=== PATIENT | female | born 1950 | race African-American/Black ===

== ENCOUNTER 2017-01-15 02:20 | Emergency (ER) | payer OTHER ==
[~2017-01-15] VITALS: Ht 157.5 cm; Wt 96.2 kg
--- NOTE | ~2017-01-15 | EKG ---
[address] [address] ELECTROCARDIOGRAM REPORT Name: MARIBEL FRANKS [id number] Admission: 01/15/17 Attend Phys: Discharge: 01/15/17 Date of : 50 Report #: [id number] THIS REPORT FOR: //name// [facility] ED Test Date: 2017-01-15 Test Time: 03:50:34 Pat Name: MARIBEL FRANKS Department: Room: Gender: F Welder Assistant: JULIETTE : 1950 Requested By: Jak Zavala Order Number: [id number] MD: Bhanu Steele Measurements Intervals [place] Rate: 84 P: 85 MT: 197 QRS: 15 QRSD: 97 T: 9 QT: 378 QTc: 447 Interpretive Statements Sinus rhythm No previous ECG available for comparison Electronically Signed On 01-15-2017 9:44:26 CDT by Bhanu Steele [email or web address] <ELECTRONICALLY SIGNED> By: Bhanu Steele MD 01/15/17 0944 0350 0350 Bhanu Steele MD /ELIOT
[2017-01-15] MEDS ORDERED: LISINOPRIL10 MG PO (02:26)
[2017-01-15 03:30] LABS: ABSOLUTE NEUTROPHILS 6.6 thou/uL (1.4-8.2); BASOPHILS 0.5 % (0.0-2.0); EOSINOPHILS 2.5 % (0.0-3.0); HEMATOCRIT 29.8 % (37.0-47.0); HEMOGLOBIN 10.1 gm/dL (12.0-15.0); LYMPHOCYTES 21.8 % (24.0-44.0); MCH 28.4 pg (26.0-34.0); MCHC 33.9 g/dL (28.0-37.0); MCV 83.7 fL (80.0-100.0); MONOCYTES 9.3 % (1.0-8.0); PLATELET COUNT 285 thou/uL (150-400); POLYS 65.9 % (36.0-66.0); RBC 3.56 mil/uL (4.20-5.00); RDW 14.8 % (10.5-14.5)
[2017-01-15 03:32] LABS: MANUAL DIFF NO
[2017-01-15 03:45] LABS: ALBUMIN 3.5 g/dL (3.4-5.0); ALKALINE PHOSPHATASE 54 U/L (46-116); ANION GAP 7 mmol/L (7-16); BUN 14 mg/dL (7-18); CALCIUM 9.3 mg/dL (8.5-10.1); CHLORIDE 99 mmol/L (98-107); CO2 27 mmol/L (21-32); CREATININE 0.7 mg/dL (0.6-1.0); GLUCOSE 111 mg/dL (74-106); MAGNESIUM 1.5 mg/dL (1.8-2.4); SALICYLATE < 2.8 mg/dL (2.8-20.0); SGOT 51 U/L (15-37); SGPT 37 U/L (30-65); SODIUM 133 mmol/L (136-145); TOTAL BILIRUBIN 0.5 mg/dL (<0.1-1.0); TROPONIN-I < 0.04 ng/mL (<0.04-0.07)
[2017-01-15 03:46] LABS: POTASSIUM 2.7 mmol/L (3.5-5.1)
[2017-01-15 04:28] LABS: ACETAMINOPHEN < 2 ug/mL (10-30)
[2017-01-15 04:56] LABS: URINE BILIRUBIN NEGATIVE (Negative); URINE BLOOD TRACE (Negative); URINE COLOR YELLOW; URINE GLUCOSE-RANDOM* NEGATIVE (Negative); URINE KETONES NEGATIVE (Negative); URINE LEUKOCYTES-REFLEX NEGATIVE (Negative); URINE PROTEIN (DIPSTICK) NEGATIVE (Negative); URINE UROBILINOGEN 0.2 E.U./dl (0.2-1.0)
[2017-01-15 05:06] LABS: AMP/METHAMP Negative (Negative); BARBITURATES Negative (Negative); BENZODIAZEPINES Negative (Negative); COCAINE Negative (Negative); METHADONE Negative (Negative); OPIATES Negative (Negative); PCP Negative (Negative); THC Negative (Negative)
[2017-01-15] MEDS ORDERED: ATIVAN0.5 MG PO (05:14)
[2017-01-15] MEDS ORDERED: TRAZODONE 150150 M1 PO (05:14)
[2017-01-15] MEDS ORDERED: POTASSIUM20 PO (05:17)
[2017-01-15 05:32] VITALS: BP 119/46
== END 2017-01-15 05:37 | disposition home or self-care (01) ==
LOC: ER 02:20
PROVIDERS: Emergency Medicine
DX: Z63.8 Other specified problems related to primary support group (principal); F41.9 Anxiety disorder, unspecified; E87.6 Hypokalemia; E83.42 Hypomagnesemia; G47.00 Insomnia, unspecified; I10 Essential (primary) hypertension; Z88.6 Allergy status to analgesic agent

== ENCOUNTER 2018-02-01 00:07 | Inpatient (IN) | payer OTHER ==
[~2018-02-01] VITALS: Ht 157.5 cm; Wt 71.2 kg
[2018-02-01] VITALS (52 sets, daily range): BP systolic 66–115; BP diastolic 29–75
--- NOTE | ~2018-02-01 | O ---
[facility] [place] [address] OPERATIVE REPORT Name: DINO FRANKSAYANA Bautista Room #: 427-P [facility] IN M.R.#: [id number] Admission: 02/01/18 Attend Phys: Frank Campbell MD Discharge: Date of : 50 Report #: [id number] THIS REPORT FOR: //name// CC: Frank Campbell [facility] DATE OF SERVICE: 02/11/2018 PREOPERATIVE DIAGNOSES: 1. 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 2. Paraplegia. 3. Protein calorie malnutrition. 4. Generalized debility. 5. Hypertension. 6. Questionable ovarian malignancy. 7. Largely nonverbal status. POSTOPERATIVE DIAGNOSES: 1. 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 2. Paraplegia. 3. Protein calorie malnutrition. 4. Generalized debility. 5. Hypertension. 6. Questionable ovarian malignancy. 7. Largely nonverbal status. PROCEDURE: Excisional debridement of skin, subcutaneous tissue, muscle and bone of a stage 4 sacral decubitus wound ultimately measuring 11 x 10 cm in dimension (110 cm2). Preoperative wound measurements were 10 x 9 cm in dimension with scant periwound necrosis and nonviable tissue. SURGEON: Damion Lindsey M.D. WELLFIELD TECHNICIAN: None. ANESTHESIA: General endotracheal anesthesia. ESTIMATED BLOOD LOSS: Minimal (less than 5 mL). COMPLICATIONS: None appreciated. SPECIMENS: Excised sacral bone to microbiology for aerobic, anaerobic and fungal culture and sensitivity. INDICATIONS: The patient is a 67-year-old chronically debilitated female who has undergone multiple rounds of debridement for sacral decubitus wound as well [facility] [address] [place] [address] OPERATIVE REPORT Name: MARIBEL FRANKS Room #: 427-P ADM IN ..#: [id number] Admission: 02/01/18 Attend Phys: Frank Campbell MD Discharge: Date of : 50 Report #: [id number] as diverting colostomy. The patient has new findings of osteomyelitis with ongoing necrotic tissue and as such, indication was for the above-mentioned procedure today. DESCRIPTION OF PROCEDURE: After explaining the risks, benefits and alternatives of the procedure with the patient in detail in the preoperative holding area and obtaining written consent, the patient was brought to the operating room and placed supine on the operating room table. After conducting a thorough timeout procedure verifying correct patient and procedure, the patient was given general endotracheal anesthesia. Once adequate anesthesia was obtained, her SCDs were hooked up to pneumatic compression device. She is already on an inpatient regimen of IV antibiotic therapy, which is in line with the SCIP protocol. The patient was now positioned in the prone position with all pressure points appropriately padded and her sacral wound was prepped and draped in the standard surgical sterile fashion. Electrocautery was used to debride all nonviable skin, subcutaneous tissue and muscle from the periphery of the wound, carried down to the depths of the wound. There was exposed bone throughout. The fl3ur ultrasonic debridement tool was used to remove all biofilm and remaining nonviable tissue throughout the entirety of the wound. At the completion, there was beefy red healthy vascularized tissue throughout. The exposed bone was soft and spongy and rongeurs were used to debride this back to a firm bleeding bone. This debrided bone was sent to microbiology for analysis. Hemostasis was assured with electrocautery as well as thrombin spray. Xeroform gauze, 4 x 4s, ABDs and Medipore tape were then applied to the wound completing the procedure. At the end of the procedure, all instrument, needle and sponge counts were correct. The patient tolerated the procedure without incident, was awakened in the operating room and transitioned to the recovery room in stable condition with no apparent complications. <ELECTRONICALLY SIGNED> By: Damion Lindsey MD, FACS 02/11/18 1548 [id number] 1452 Damion Lindsey MD, FACS /nt
--- NOTE | ~2018-02-01 | HC ---
[facility] [place] [address] CONSULTATION Name: TINYMARIBEL E Room #: 237-P [facility] IN .R.#: [id number] Admission: 02/01/18 Attend Phys: Frank Campbell MD Discharge: Date of : 50 Report #: [id number] THIS REPORT FOR: //name// CC: Frank Campbell [facility]ug[facility] DATE OF SERVICE: 02/02/2018 CHIEF COMPLAINT: Stage 4 sacral pressure ulceration. HISTORY OF PRESENT ILLNESS: This is a 67-year-old female patient who was admitted to the hospital with hematuria. She normally resides in a nursing care facility at [facility]. She was noted to have low blood pressures and hematuria, felt to have a urinary tract infection. She cannot provide very much information about herself. She does make eye contact. She shakes her head when asked if she is having pain, although, she is mostly nonverbal and unable to answer questions. ALLERGIES: ASPIRIN. MEDICATIONS: Include Lexapro, Pepcid, iron, multivitamin, vitamin D, zinc sulfate, dronabinol, Romel, MiraLax, vitamin C, Ensure, Cogentin, Haldol, Tylenol, Macrobid, Mucinex, Humalog, DuoNeb, Roxicodone. PAST MEDICAL HISTORY: Positive for hypertension, history of paraplegia, previous colostomy and previous hysterectomy. FAMILY HISTORY: Unknown and unable to be obtained. SOCIAL HISTORY: Reportedly negative for alcohol or tobacco or drug use. REVIEW OF SYSTEMS: Not obtainable due to the patient's worsening mental status and inability to answer questions. PHYSICAL EXAMINATION: VITAL SIGNS: At this time include pulse rate 62, respiratory rate of 13, blood pressure 99/55, temperature 97.7. GENERAL: This is a chronically ill-appearing female patient who appears to be in no distress. HEENT: Normocephalic. Nose and throat are clear. Extraocular movements are intact. The pupils are equal and reactive. NECK: Seems supple. LUNGS: Diminished. HEART: Regular rate and rhythm. ABDOMEN: Soft, nontender. PELVIC: Region demonstrates a stage 4 pressure ulcer into the sacrum. It is [facility] [address] [place] [address] CONSULTATION Name: MARIBEL FRANKS Room #: 237-P ADM IN M.R.#: [id number] Admission: 02/01/18 Attend Phys: Frank Campbell MD Discharge: Date of : 50 Report #: [id number] malodorous. There is a fairly good covering of granulation tissue, although bone is easily palpable through this granulation tissue. There is some slough, although once again this is about 90% covered with healthy granulation tissue. Heels are intact. NEUROLOGIC: The patient is awake. Her orientation is difficult to assess. LABORATORY DATA: Includes sodium 143, potassium 3.0, chloride 112, CO2 of 21, BUN 24, creatinine 0.7, glucose 134, SGOT is 16, total bilirubin less than 0.1, calcium is 7.2, magnesium 0.9, alkaline phosphatase 74, SGPT is 15, total protein 4.8, albumin 1.4. White blood cell count 12.1 with a hemoglobin of 6.2, hematocrit of 19.6. CLINICAL IMPRESSION: 1. Stage 4 pressure ulcer into the sacrum. 2. Paraplegia by history and by clinical exam. Etiology is unknown. 3. Anemia. 4. Severe protein-calorie malnutrition. 5. Advanced debility. RECOMMENDATIONS: At this point in time, we will recommend 1/2 strength Dakin's moist gauze dressing to be changed on a twice daily basis at least to get the wound base cleared up. We will check a sed rate and CRP. She did have a CAT scan. There was no mention of findings consistent with any sacral osteomyelitis. However, there are findings that raised the question of a possible ovarian malignancy. At this point in time, we will recommend low air loss mattress, q. 2 hour turning and repositioning. She will need aggressive nutritional support to maximize wound healing. I appreciate being asked to see her in consultation. <ELECTRONICALLY SIGNED> By: Bradley Kohler MD 02/03/18 1440 1759 0050 Bradley Kohler MD /nt
--- NOTE | ~2018-02-01 | HC ---
[facility] [place] [address] CONSULTATION Name: MARIBEL FRANKS Room #: 427-P ADM IN M.R.#: [id number] Admission: 02/01/18 Attend Phys: Frank Campbell MD Discharge: Date of : 50 Report #: [id number] THIS REPORT FOR: //name// CC: Frank Campbell [facility] DATE OF SERVICE: 02/10/2018 REFERRING PROVIDER: Frank Campbell M.D. REASON FOR CONSULTATION: Sacral decubitus wound with osteomyelitis. HISTORY OF PRESENT ILLNESS: This is a 67-year-old female who has been transitioned to [facility] from a [facility] facility due to hypotension, confusion and infected sacral decubitus wound with osteomyelitis. The patient was admitted with hematuria and urinary tract infection as well and is mostly nonverbal and unable to answer questions. It is for the new finding of osteomyelitis with the infected stage 4 sacral decubitus wound that I was asked to evaluate for possible debridement. Of note, the patient does have CT scan findings concerning for possible ovarian malignancy, for which the patient's family is reportedly not wishing to pursue aggressive measures. HOME MEDICATIONS: Lexapro, Pepcid, iron, multivitamin, vitamin D, zinc, dronabinol, Romel, MiraLax, vitamin C, Ensure, Cogentin, Haldol, Tylenol, Macrobid, Mucinex, Humalog, DuoNeb and Roxicodone. ALLERGIES: ASPIRIN. PAST MEDICAL HISTORY: Hypertension and paraplegia. PAST SURGICAL HISTORY: Prior colostomy and prior hysterectomy. FAMILY HISTORY: Reviewed and noncontributory. SOCIAL HISTORY: The patient does not utilize tobacco, alcohol or illicit drugs. REVIEW OF SYSTEMS: Unobtainable secondary to the patient's nonverbal status. PHYSICAL EXAMINATION: VITAL SIGNS: Temperature 97.5, pulse 67, respirations 18, blood pressure 129/76, she weighs 157 pounds. GENERAL: She is chronically ill-appearing female who is in no distress. HEENT: Normocephalic, atraumatic. Pupils are equal and round and reactive to light. NECK: Supple, without lymphadenopathy. Trachea midline. HEART: Regular rate and rhythm. [address] [address] CONSULTATION Name: MARIBEL FRANKS Room #: 427-P [facility] IN M.R.#: [id number] Admission: 02/01/18 Attend Phys: Frank Campbell MD Discharge: Date of : 50 Report #: [id number] LUNGS: Decreased breath sounds at the bases bilaterally. ABDOMEN: Soft, nontender, nondistended. Colostomy is pink, patent and functional. GENITOURINARY: Normal external female genitalia. EXTREMITIES: No clubbing, cyanosis or edema, but she does have cachexia. NEUROLOGIC: Cranial nerves 2-12 are grossly intact. PSYCHIATRIC: Unobtainable secondary to her nonverbal status. SKIN AND INTEGUMENT: Stage 4 sacral decubitus wound with malodorous drainage and easily palpable bone with slough. LABORATORY AND X-RAY DATA: Most recent CBC showed a white blood cell count of 13.8 thousand, hemoglobin 7.8, platelets 254,000. Albumin is 1.5. Creatinine has normalized at 0.5. ASSESSMENT AND PLAN: A 67-[facility] resident with paraplegia who presents with stage 4 sacral decubitus wound with osteomyelitis and malodorous drainage. The patient does have Pseudomonas aeruginosa involvement of the sacral wound and is on antibiotics per the direction of Infectious Disease. The patient also has CT scan findings concerning for ovarian malignancy, for which the patient's family is desiring to not seek aggressive measures. At this time, the patient does appear amenable to sacral debridement provided the family will consent for that. As such, we will proceed to the operating room at the first available opportunity after obtaining the patient's family's consent for debridement of her wound back to healthy tissue to allow for proper wound healing and care ongoing. I sincerely appreciate this consult. I will follow along and leave any further recommendations in the patient's chart as appropriate. <ELECTRONICALLY SIGNED> By: Damion Lindsey MD, FACS 02/10/18 2307 1150 1821 Damion Lindsey MD, FACS /nt
--- NOTE | ~2018-02-01 | HC ---
[facility] [place] [address] CONSULTATION Name: MARIBEL FRANKS Room #: 427-P [facility] IN ..#: [id number] Admission: 02/01/18 Attend Phys: Frank Campbell MD Discharge: 02/12/18 Date of : 50 Report #: [id number] THIS REPORT FOR: //name// CC: Garfield Strangeulveronica DATE OF SERVICE: 02/01/2018 REASON FOR CONSULTATION: Acute kidney injury. HISTORY OF PRESENT ILLNESS: The patient is currently having mental status issues and she is not able to provide me with the details of the history. My history was obtained from reviewing the medical charts. She is a 67-year-old, not really sure about her mental status condition at baseline. Not really sure about her previous medical problems. She stays at [facility]. She was sent to the Emergency Room earlier this morning because of low blood pressure. Nursing staff also noted some blood in her urine. On presentation to the Emergency Room, the patient was hypotensive. Creatinine on presentation was 2.9. Previous values revealed that her creatinine back in 12/2016 was 0.7. The patient is paraplegic. There seems to be some psych issues. She also has some sacral decubitus and a colostomy. She is on multiple psychotropic agents. There is mention in one of the notes that she has a history of hypertension as she is on Zestril as an outpatient; however, this has been discontinued. Listed amongst other medications is also Macrobid. PAST MEDICAL HISTORY: Listed as the followin. Paraplegia. 2. Sacral decubitus. 3. Colostomy for unclear reasons to me. SOCIAL HISTORY: She resides in a nursing facility. Other parts of social history unobtainable. MEDICATIONS: Listed medications from her nursing facility: 1. Trazodone. 2. Lorazepam. 3. Lisinopril. 4. Potassium. 5. . 6. Pepcid. 7. Ferrous sulphate. 8. Haloperidol. 9. Macrobid. ALLERGIES: ASPIRIN. [facility] [address] [place] [address] CONSULTATION Name: MARIBEL FRANKS Room #: 427-P [facility] IN [facility].#: [id number] Admission: 02/01/18 Attend Phys: Frank Campbell MD Discharge: 02/12/18 Date of : 50 Report #: [id number] FAMILY HISTORY: Unobtainable. REVIEW OF SYSTEMS: Unobtainable given the patient's mental status. PHYSICAL EXAMINATION: GENERAL: She is weak, lethargic. VITAL SIGNS: Blood pressure was very marginal at 77/39. HEAD AND NECK: Dry mucous membrane. CHEST: Decreased air entry bilaterally. CARDIOVASCULAR: Regular with no rub. Tachycardic. ABDOMEN: Soft, nontender with a colostomy. LOWER EXTREMITIES: No edema. LABORATORY DATA: Reviewed. Hemoglobin is down to 7.4. Sodium is 138, potassium is 3.8, BUN is 9, creatinine is 2.9, alkaline phosphatase is elevated at 118, mildly. Albumin is extremely low at 1.9. Blood and urine culture obtained. CT abdomen reviewed. There seems to be a cystic mass in the left lower quadrant, thought to be on left ovary. There is mild bilateral hydronephrosis and hydroureter. There is a lobulated bladder mass. ASSESSMENT, IMPRESSION, PLAN: 1. Acute kidney injury. 2. Bilateral hydronephrosis and hydroureter. 3. Bladder mass. 4. Cystic left lower quadrant mass. 5. Status post colostomy. 6. Paraplegia. 7. This seems to be a combined prerenal, obstructive acute kidney injury. 8. Move down to the ICU and rule out sepsis. 9. Initiate septic protocol. 10. Bolus with IV fluids. 11. Urology consultation for the bladder mass. 12. Triple lumen bladder irrigation. 13. Basic acute kidney injury workup. 14. Broad spectrum antibiotic. 15. Adjust antibiotics according to cultures. 16. We will try to reach out to family members to obtain further details about her history. 17. Investigate the source for her anemia. 18. We will continue to follow along. <ELECTRONICALLY SIGNED> By: Diaz Garner MD 02/14/18 0756 57 Diaz Garner MD /nt
--- NOTE | ~2018-02-01 | EKG ---
[address] [address] ELECTROCARDIOGRAM REPORT Name: MARIBEL FRANKS Room #: 237-P [facility] IN .R.#: [id number] Admission: 02/01/18 Attend Phys: Frank Campbell MD Discharge: Date of : 50 Report #: [id number] THIS REPORT FOR: //name// [facility] ED Test Date: 2018-02-01 Test Time: 00:39:42 Pat Name: MARIBEL FRANKS Department: Room: Gender: F Director Regulatory Compliance: LUIS : 1950 Requested By: Alok Ramirez Order Number: [id number] MD: Bhanu Steele Measurements Intervals [place] Rate: 62 P: 72 GA: 157 QRS: 34 QRSD: 85 T: 48 QT: 414 QTc: 421 Interpretive Statements Sinus rhythm Probable left atrial enlargement Compared to ECG 01/15/2017 03:50:34 No significant changes Electronically Signed On 02-02-2018 8:09:10 CDT by Bhanu Steele [email or web address] <ELECTRONICALLY SIGNED> By: Bhanu Steele MD 02/02/18 0809 0039 0039 Bhanu Steele MD /ELIOT
--- NOTE | ~2018-02-01 | HC ---
[facility] [place] [address] CONSULTATION Name: MARIBEL FRANKS Michele Room #: 427-P [facility] IN M.R.#: [id number] Admission: 02/01/18 Attend Phys: Frank Campbell MD Discharge: Date of : 50 Report #: [id number] THIS REPORT FOR: //name// CC: Frank Campbell [facility] HISTORY OF PRESENT ILLNESS: This is a patient seen in regard to questionable ovarian mass. She was admitted with acute kidney injury and elevated serum creatinine associated with dehydration, which was corrected with IV fluids. A CAT scan was performed, which showed a mixed cystic and solid mass within the lower quadrant concerning for ovarian cancer. She has a psychiatric history along with dementia and is unable to answer any questions in a meaningful fashion. PAST MEDICAL HISTORY: Significant for a sacral decubitus related to her paraplegia. She is a long-term resident of [facility]. PAST SURGICAL HISTORY: She has had prior colostomy. ALLERGIES: ASPIRIN. MEDICATIONS: As noted in MFR. FAMILY HISTORY: Noncontributory. SOCIAL HISTORY: Unknown in terms of smoking or drinking, but believed to be negative. REVIEW OF SYSTEMS: Not obtainable. PHYSICAL EXAMINATION: GENERAL: Shows her to be awakened and alert, but unable to answer questions. She is currently afebrile. HEENT: Normocephalic. Her mouth is clear. NECK: Supple. BREASTS: Reveal no masses. CHEST: Clear. CARDIOVASCULAR: Normal S1, S2. ABDOMEN: Soft. There is no evidence of ascites or mass. EXTREMITIES: Show no clubbing, cyanosis, or edema. NEUROPSYCHIATRIC: She has dementia. LABORATORY DATA: Shows her to be anemic with hemoglobin of 7.4 on admission. ASSESSMENT: Questionable pelvic mass. [facility] [address] [place] [address] CONSULTATION Name: MARIBEL FRANKS Room #: 427-P ADM IN [facility]#: [id number] Admission: 02/01/18 Attend Phys: Frank Campbell MD Discharge: Date of : 50 Report #: [id number] PLAN: CEA and CA-125 titers have been drawn and we will also inquire to the family whether or not this has been present previously or something they want to pursue based on her underlying medical histories. Thanks again for asking us to see her with you in consultation and allowing me to participate in her care. <ELECTRONICALLY SIGNED> By: Genie Barrientos MD 02/10/18 0837 2157 220 Genie Barrientos MD /nt
[~2018-02-01 00:07] MED LIST: ATIVAN0.5 MG PO; LISINOPRIL10 MG PO; POTASSIUM20 PO; TRAZODONE 150150 M1 PO
[2018-02-01 00:43] LABS: ABSOLUTE NEUTROPHILS 10.5 thou/uL (1.4-8.2); BASOPHILS 0.5 % (0.0-2.0); EOSINOPHILS 0.4 % (0.0-3.0); HEMATOCRIT 24.7 % (37.0-47.0); HEMOGLOBIN 7.9 gm/dL (12.0-15.0); LYMPHOCYTES 11.2 % (24.0-44.0); MCH 24.2 pg (26.0-34.0); MCV 75.6 fL (80.0-100.0); MONOCYTES 6.6 % (1.0-8.0); PLATELET COUNT 373 thou/uL (150-400); POLYS 81.3 % (36.0-66.0); RBC 3.26 mil/uL (4.20-5.00); RDW 18.2 % (10.5-14.5)
[2018-02-01 00:51] LABS: ANION GAP 10 mmol/L (7-16); BUN 90 mg/dL (7-18); CALCIUM 9.7 mg/dL (8.5-10.1); CHLORIDE 101 mmol/L (98-107); CO2 27 mmol/L (21-32); CREATININE 2.9 mg/dL (0.6-1.0); GLUCOSE 114 mg/dL (74-106); POTASSIUM 3.8 mmol/L (3.5-5.1); SODIUM 138 mmol/L (136-145)
[2018-02-01 00:54] LABS: URINE BLOOD 3+ (Negative); URINE CLARITY CLOUDY; URINE COLOR RED; URINE GLUCOSE-RANDOM* NEGATIVE (Negative); URINE KETONES NEGATIVE (Negative); URINE PROTEIN (DIPSTICK) 3+ (Negative); URINE SPECIFIC GRAVITY 1.015 (1.005-1.035); URINE UROBILINOGEN 0.2 E.U./dl (0.2-1.0)
[2018-02-01 00:55] LABS: URINE LEUKOCYTES-REFLEX 3+ (Negative); URINE NITRITE-REFLEX POSITIVE (Negative)
[2018-02-01 01:00] LABS: ALBUMIN 1.9 g/dL (3.4-5.0); SGOT 15 U/L (15-37); SGPT 15 U/L (30-65); TOTAL BILIRUBIN 0.2 mg/dL (<0.1-1.0); TOTAL PROTEIN 6.3 g/dL (6.4-8.2); TROPONIN-I < 0.04 ng/mL (<0.06)
[2018-02-01 01:04] LABS: ICTOTEST (BILI CONFIRMATORY) Negative (Negative); URINE BILIRUBIN NEGATIVE (Negative)
[2018-02-01 01:07] LABS: CASTS None Seen /LPF (None Seen); CRYSTALS None Seen /LPF (None Seen); MUCUS None Seen strn/LPF (None Seen); SQUAMOUS None Seen /LPF (0-3); TRANSITIONAL EPITHEL CELL 0-3 Few /LPF (None Seen); URINE RBC >20 Many /HPF (0-2)
[2018-02-01] MEDS ORDERED: LEXAPRO 10 MG T10 M1 PO (01:34)
[2018-02-01] MEDS ORDERED: PEPCID20 MG PO (01:34)
[2018-02-01] MEDS ORDERED: VITAMIN D2000 UNIT PO (01:35)
[2018-02-01] MEDS ORDERED: MULTILEX-T-M W1 EACH PO (01:35)
[2018-02-01] MEDS ORDERED: IRON325 PO (01:35)
[2018-02-01] MEDS ORDERED: DRONABINOL5 MG PO (01:36)
[2018-02-01] MEDS ORDERED: ZINC SULFATE220 MG PO (01:36)
[2018-02-01] MEDS ORDERED: JUVEN PACKET1 EAC1 PO (01:36)
[2018-02-01] MEDS ORDERED: VITAMINC500 PO (01:37)
[2018-02-01] MEDS ORDERED: MIRALAX17 GM PO (01:37)
[2018-02-01] MEDS ORDERED: HALOPERIDOL 5 MG5 MG PO (01:38)
[2018-02-01] MEDS ORDERED: ENSURE LIQUID237 M1 PO (01:38)
[2018-02-01] MEDS ORDERED: BENZTROPINE MES1 MG PO (01:38)
[2018-02-01] MEDS ORDERED: TYLENOL325 MG PO (01:38)
[2018-02-01] MEDS ORDERED: MACROBID 100 M100 M2 PO (01:39)
[2018-02-01] MEDS ORDERED: MUCINEX600 MG PO (01:40)
[2018-02-01] MEDS ORDERED: HUMALOG100 UNIT/1 SUBQ (01:41)
[2018-02-01] MEDS ORDERED: DUONEB 2.5-0.5 M3 ML INH (01:42)
[2018-02-01] MEDS ORDERED: ROXICODONE5 MG PO (01:42)
[2018-02-01 05:32] LABS: % SATURATION 15 % (20-39); IRON 18 ug/dL (50-170); TIBC 122 ug/dL (250-450)
[2018-02-01 13:28] LABS: HEMATOCRIT 22.3 % (37.0-47.0); HEMOGLOBIN 7.4 gm/dL (12.0-15.0); MCH 25.1 pg (26.0-34.0); MCHC 32.9 g/dL (28.0-37.0); MCV 76.1 fL (80.0-100.0); RBC 2.94 mil/uL (4.20-5.00); RDW 18.1 % (10.5-14.5); WBC 9.2 thou/uL (4.0-11.0)
[2018-02-02] VITALS (99 sets, daily range): BP systolic 77–129; BP diastolic 34–104
[2018-02-02 05:52] LABS: ALBUMIN 1.4 g/dL (3.4-5.0); PHOSPHORUS 2.6 mg/dL (2.5-4.9)
[2018-02-02 06:11] LABS: CALCIUM 7.6 mg/dL (8.5-10.1); CREATININE 0.6 mg/dL (0.6-1.0); POTASSIUM 2.3 mmol/L (3.5-5.1)
[2018-02-02 10:25] LABS: MCH 24.3 pg (26.0-34.0); MCHC 31.3 g/dL (28.0-37.0); MCV 77.5 fL (80.0-100.0); RBC 2.53 mil/uL (4.20-5.00); RDW 18.7 % (10.5-14.5); WBC 12.1 thou/uL (4.0-11.0)
[2018-02-02 10:27] LABS: HEMOGLOBIN 6.2 gm/dL (12.0-15.0)
[2018-02-02 10:28] LABS: HEMATOCRIT 19.6 % (37.0-47.0)
[2018-02-02 10:40] LABS: ALBUMIN 1.4 g/dL (3.4-5.0); ANION GAP 10 mmol/L (7-16); BUN 24 mg/dL (7-18); CALCIUM 7.2 mg/dL (8.5-10.1); CHLORIDE 112 mmol/L (98-107); CO2 21 mmol/L (21-32); CREATININE 0.7 mg/dL (0.6-1.0); GLUCOSE 134 mg/dL (74-106); SGOT 16 U/L (15-37); SGPT 15 U/L (30-65); SODIUM 143 mmol/L (136-145); TOTAL BILIRUBIN < 0.1 mg/dL (<0.1-1.0); TOTAL PROTEIN 4.8 g/dL (6.4-8.2)
[2018-02-02 10:41] LABS: MAGNESIUM 0.9 mg/dL (1.8-2.4)
[2018-02-02 18:39] LABS: MAGNESIUM 1.5 mg/dL (1.8-2.4); POTASSIUM 3.6 mmol/L (3.5-5.1)
[2018-02-02 18:49] LABS: HEMATOCRIT 24.9 % (37.0-47.0); HEMOGLOBIN 7.8 gm/dL (12.0-15.0)
[2018-02-03] VITALS (76 sets, daily range): BP systolic 85–140; BP diastolic 39–88
[2018-02-03 05:50] LABS: HEMATOCRIT 24.7 % (37.0-47.0); HEMOGLOBIN 7.8 gm/dL (12.0-15.0); MCH 24.9 pg (26.0-34.0); MCHC 31.7 g/dL (28.0-37.0); MCV 78.6 fL (80.0-100.0); RBC 3.15 mil/uL (4.20-5.00); RDW 18.6 % (10.5-14.5); WBC 14.3 thou/uL (4.0-11.0)
[2018-02-03 06:06] LABS: ALBUMIN 1.5 g/dL (3.4-5.0); CALCIUM 7.9 mg/dL (8.5-10.1); CREATININE 0.6 mg/dL (0.6-1.0); POTASSIUM 3.6 mmol/L (3.5-5.1)
[2018-02-04] VITALS (45 sets, daily range): BP systolic 81–147; BP diastolic 43–97
[2018-02-04 03:14] LABS: HEMATOCRIT 26.1 % (37.0-47.0); HEMOGLOBIN 8.2 gm/dL (12.0-15.0); MCH 24.6 pg (26.0-34.0); MCHC 31.5 g/dL (28.0-37.0); MCV 78.3 fL (80.0-100.0); RBC 3.33 mil/uL (4.20-5.00); RDW 18.7 % (10.5-14.5); WBC 13.3 thou/uL (4.0-11.0)
[2018-02-04 03:30] LABS: ALBUMIN 1.5 g/dL (3.4-5.0); CALCIUM 8.2 mg/dL (8.5-10.1); CREATININE 0.5 mg/dL (0.6-1.0); PHOSPHORUS 2.1 mg/dL (2.5-4.9); POTASSIUM 3.9 mmol/L (3.5-5.1)
[2018-02-04 17:51] LABS: ABSOLUTE RETIC COUNT 0.0228 10^6/uL; OBSERVED RETIC COUNT 0.69 % (0.6-2.6)
[2018-02-05 05:28] VITALS: BP 91/54
[2018-02-05 05:54] LABS: HEMATOCRIT 23.9 % (37.0-47.0); HEMOGLOBIN 7.8 gm/dL (12.0-15.0); MCHC 32.5 g/dL (28.0-37.0); MCV 76.8 fL (80.0-100.0); RBC 3.11 mil/uL (4.20-5.00); RDW 18.9 % (10.5-14.5)
[2018-02-05 06:08] LABS: ALBUMIN 1.5 g/dL (3.4-5.0); CALCIUM 8.3 mg/dL (8.5-10.1); CREATININE 0.5 mg/dL (0.6-1.0); PHOSPHORUS 3.6 mg/dL (2.5-4.9); POTASSIUM 4.7 mmol/L (3.5-5.1)
[2018-02-05 07:44] VITALS: BP 113/50
[2018-02-05 08:45] VITALS: BP 113/50
[2018-02-05 12:17] VITALS: BP 136/53
[2018-02-05 13:50] LABS: URINE BILIRUBIN NEGATIVE (Negative); URINE BLOOD 3+ (Negative); URINE CLARITY CLEAR; URINE COLOR YELLOW; URINE GLUCOSE-RANDOM* NEGATIVE (Negative); URINE KETONES NEGATIVE (Negative); URINE NITRITE-REFLEX NEGATIVE (Negative); URINE PROTEIN (DIPSTICK) TRACE (Negative); URINE UROBILINOGEN 0.2 E.U./dl (0.2-1.0)
[2018-02-05 13:51] LABS: URINE LEUKOCYTES-REFLEX 3+ (Negative)
[2018-02-05 13:58] LABS: CASTS None Seen /LPF (None Seen); SQUAMOUS 4-10 Moderate /LPF (0-3)
[2018-02-05 13:59] LABS: BACTERIA-REFLEX >30 Many /HPF (None Seen); CRYSTALS None Seen /LPF (None Seen)
[2018-02-05 16:08] LABS: GLOBULIN TOTAL 2.7 g/dL (2.2-3.9); M-SPIKE Not Observed g/dL (Not Observed)
[2018-02-05 16:18] VITALS: BP 110/37
[2018-02-05 19:35] VITALS: BP 113/52
[2018-02-06 04:52] VITALS: BP 103/35
[2018-02-06 06:38] LABS: HEMATOCRIT 24.6 % (37.0-47.0); HEMOGLOBIN 7.8 gm/dL (12.0-15.0); MCH 24.6 pg (26.0-34.0); MCHC 31.5 g/dL (28.0-37.0); MCV 78.3 fL (80.0-100.0); RBC 3.15 mil/uL (4.20-5.00); RDW 19.5 % (10.5-14.5); WBC 13.8 thou/uL (4.0-11.0)
[2018-02-06 06:53] LABS: CALCIUM 8.4 mg/dL (8.5-10.1); CREATININE 0.5 mg/dL (0.6-1.0); MAGNESIUM 1.8 mg/dL (1.8-2.4)
[2018-02-06 09:48] VITALS: BP 102/42
[2018-02-06 14:29] VITALS: BP 102/42
[2018-02-06 16:34] VITALS: BP 132/57
[2018-02-06 20:00] VITALS: BP 132/57; BP 138/60
[2018-02-07 04:30] VITALS: BP 148/68
[2018-02-07 07:00] VITALS: BP 86/27
[2018-02-07 10:27] VITALS: BP 103/42
[2018-02-07 16:00] VITALS: BP 99/54
[2018-02-07 20:22] VITALS: BP 117/48
[2018-02-08 04:38] VITALS: BP 99/36
[2018-02-08 07:57] VITALS: BP 120/45
[2018-02-08 20:00] VITALS: BP 115/56
[2018-02-09 04:00] VITALS: BP 111/51
[2018-02-09 08:09] VITALS: BP 129/38
[2018-02-09 17:24] VITALS: BP 98/48
[2018-02-09 20:00] VITALS: BP 135/84
[2018-02-09 22:01] VITALS: BP 135/84
[2018-02-10 04:30] VITALS: BP 129/46
[2018-02-10 09:54] VITALS: BP 78/46
[2018-02-10 15:00] VITALS: BP 127/47
[2018-02-10 19:30] VITALS: BP 110/59
[2018-02-11 04:21] VITALS: BP 123/62
[2018-02-11 05:28] LABS: HEMATOCRIT 22.9 % (37.0-47.0); HEMOGLOBIN 7.3 gm/dL (12.0-15.0); MCHC 32.1 g/dL (28.0-37.0); MCV 78.1 fL (80.0-100.0); RBC 2.93 mil/uL (4.20-5.00); WBC 9.4 thou/uL (4.0-11.0)
[2018-02-11 05:42] LABS: CALCIUM 9.1 mg/dL (8.5-10.1); CREATININE 0.4 mg/dL (0.6-1.0); POTASSIUM 3.9 mmol/L (3.5-5.1)
[2018-02-11 07:10] VITALS: BP 121/47
[2018-02-11 16:39] VITALS: BP 112/56
[2018-02-11 19:31] VITALS: BP 102/48
[2018-02-12 04:33] VITALS: BP 101/48
[2018-02-12 07:30] VITALS: BP 110/39
[2018-02-12] MEDS ORDERED: AMOXICILLIN 50500 M1 PO (11:44)
[2018-02-12] MEDS ORDERED: CEFTAZIDIME1 GM IVPB (11:45)
[2018-02-12] MEDS ORDERED: CIPRO500 MG PO (12:28)
[2018-02-12 16:48] VITALS: BP 105/54
== END 2018-02-12 17:05 | DRG 981 ==
LOC: ER 00:07 → ICU 01:26 → EROBS 01:26 → 3W 02:01 → ICU 13:40 → 3W 13:40 → ICU 13:41 → 4E 02-04 12:26
PROVIDERS: Emergency Medicine; Hospitalist; Internal Medicine; Internal Medicine Nephrology; Nurse Practitioner Acute Care; Surgery
DX: N17.9 Acute kidney failure, unspecified (principal); L89.154 Pressure ulcer of sacral region, stage 4; E43 Unspecified severe protein-calorie malnutrition; M86.8X8 Other osteomyelitis, other site; G82.20 Paraplegia, unspecified; D62 Acute posthemorrhagic anemia; N13.30 Unspecified hydronephrosis; N30.91 Cystitis, unspecified with hematuria; I10 Essential (primary) hypertension; N32.9 Bladder disorder, unspecified; I95.9 Hypotension, unspecified; F03.90 Unspecified dementia, unspecified severity, without behavioral disturbance, psychotic disturbance, mood disturbance, and anxiety; E83.42 Hypomagnesemia; B95.2 Enterococcus as the cause of diseases classified elsewhere; E83.39 Other disorders of phosphorus metabolism; D72.829 Elevated white blood cell count, unspecified; B96.5 Pseudomonas (aeruginosa) (mallei) (pseudomallei) as the cause of diseases classified elsewhere; Z88.6 Allergy status to analgesic agent; Z93.3 Colostomy status; Z90.710 Acquired absence of both cervix and uterus
CPT/HCPCS: 10078; 10183; 10203; 27000; 50010; 50101; 50386; 50403; 62110; 62900; 70005